=== PATIENT | male | born 1950 | race Caucasian/White ===

== ENCOUNTER → 2016-09-30 | Outpatient (CLI) | payer BC ==
[~2016-09-30] MED LIST: ACETAMINOPHEN PO; ACIDOPHILUS1 CA1 PO; ASPIRIN PO; ASPIRIN81 M1 PO; ASPIRIN81 M2 PO; BRILINTA90 MG PO; CELEXA PO; COMBIVENT U/D3 M2 INH; CRESTOR PO; DOXYCYCLINE PO; FISH OIL 1,0001 CAP PO; HYDROCODONE/APA1 T15 PO; JOINT; LEVAQUIN750 MG PO; LIPITOR; LISINOPRIL PO; LODINE400 M1 PO; LORTAB 10/500 T1 TAB PO; METOPROLOL SUCC25 MG PO; MULTI-DAY VITAM1 TAB PO; MULTI-VITAMIN1 TAB; MUSCLE; NITROGLYGERIN0.4 MG SL; NORVASC; NORVASC PO; NORVASC10 MG PO; PRAVACHOL80 MG PO; PRAVASTATIN SOD20 MG PO; PREDNISONE PO; PRINIVIL10 MG PO; SPIRIVA18 MCG INH; SYMBICORT80 INH; TOPROL XL PO; TUMS PO; TYLOX1 CAP 5/50 PO; VITAMIN D1000 UNIT PO; VITAMINE C; [UNRECOGNIZED DRUG - REMARK] PO
--- NOTE | ~2016-09-30 | CT57 ---
[facility] A Service of [facility] RADIOLOGY TEXT RESULTS PATIENT: ROSANA CLIFFORD LOCATION: [facility] : 48 UNIT #: [id number] AGE: [address]: Ambrosio Du SEX: M ORDER DR: [id number] [place], [place] [address] [id number] O MR#: [id number] [facility] #: [id number] NAME: ROSANA CLIFFORD. : 1950 SEX: M STUDY DATE/TIME: 09/30/2016 11:16 UNIT: [facility] ROOM: STUDY DESCRIPTION: CT Chest Wo Cont Attending Physician: Ambrosio Du M.D. Referring Physician: Ambrosio Du M.D. Ordering Physician: Ambrosio Du M.D. Primary Care Physician: Joseph Salazar Jr., M.D. MEDICAL IMAGING REPORT This report is preliminary unless electronic signature is present EXAM CT of the chest without contrast INDICATIONS 66-year-old male with shortness of breath for 4 years. Followup pulmonary nodule. TECHNIQUE CT chest performed without contrast. Coronal and sagittal reformatted images were obtained. This CT exam was performed with one or more of the following radiation dose reduction techniques: automatic control, adjustment of mA and/or kV according to patient size, and iterative reconstruction. COMPARISON 02/15/2016 FINDINGS Emphysema. Stable 5 - 6 mm nodule in the right upper lobe. This has been stable dating back to October of 2015. There is some mild tree-in-bud nodularity in the base of the right lower lobe. This is stable. No new nodules. No lymphadenopathy. Calcified mediastinal and hilar lymph nodes. Coronary artery calcification. Trace pericardial fluid. No pleural fluid. Limited imaging in the upper abdomen demonstrates stable large cyst adjacent to the right kidney. Bone windows demonstrate a healing left ninth rib fracture. Degenerative change thoracic spine. IMPRESSION 1. Stable emphysema. 2. Stable 5-6 mm nodule in the right upper lobe. 3. Stable minimal tree-in-bud nodularity in the base of the right lower lobe. [facility] A Service of [facility] RADIOLOGY TEXT RESULTS PATIENT: ROSANA CLIFFORD LOCATION: [facility] : 48 UNIT #: [id number] AGE: [address]: Ambrosio Du SEX: M ORDER DR: Dictated by... Scottie Jimenes M.D. THIS IS AN ELECTRONICALLY VERIFIED REPORT Scottie Jimenes M.D. at 10/01/2016 9:08 AM BI/marior TD: 09/30/2016 14:06 JOB #: [id number] MEDICAL IMAGING REPORT Page 1 of 1 COPY
== END | disposition home or self-care (01) ==
LOC: CCAT 10:50
DX: R91.1 Solitary pulmonary nodule (principal); J43.9 Emphysema, unspecified
CPT/HCPCS: 71250

== ENCOUNTER → 2017-03-24 | Outpatient (CLI) | payer BC ==
--- NOTE | ~2017-03-24 | CT57 ---
[facility] A Service of [facility] RADIOLOGY TEXT RESULTS PATIENT: ROSANA CLIFFORD LOCATION: [facility] : 49 UNIT #: [id number] AGE: [address]: Leonela Ornelas SEX: M ORDER DR: [id number] [facility] [address] [place], [place] [address] [id number] O MR#: [id number] Acc #: [id number] NAME: ROSANA CLIFFORD : 1950 SEX: M STUDY DATE/TIME: 03/24/2017 13:44 UNIT: [facility] ROOM: STUDY DESCRIPTION: CT Chest Wo Cont Attending Physician: Leonela Ornelas A.P.R.N. Referring Physician: Leonela Ornelas A.P.R.N. Ordering Physician: Leonela Ornelas A.P.R.N. Primary Care Physician: Joseph Salazar Jr., M.D. MEDICAL IMAGING REPORT This report is preliminary unless electronic signature is present EXAM CT chest without contrast. INDICATIONS Followup pulmonary nodule. TECHNIQUE CT of the chest was performed without contrast. Coronal and sagittal reformatted images were obtained. This CT exam was performed with one or more of the following radiation dose reduction techniques: automatic exposure control, adjustment of mA and/or kV according to patient size, and iterative reconstruction. COMPARISON Compared with 09/30/2016, and 02/15/2016. FINDINGS Emphysema. Stable 5-6 mm pulmonary nodule within the periphery of right upper lobe. Stable tree-in-bud nodularity in the base of the right lower lobe. Stable left upper lobe micronodule on image 34. No new nodules. No suspicious lymphadenopathy. Calcified mediastinal hilar lymph nodes. Small pericardial effusion. No pleural effusion. Coronary artery calcification. Limited imaging in the upper abdomen shows postoperative change from mesh repair of the anterior abdominal wall. Partially imaged cyst in the right kidney. Bone windows show an old healed rib fracture on the left. IMPRESSION 1. Stable 5-6 mm nodule in the periphery of right upper lobe. 2. Stable tree-in-bud nodularity in the base of the right lower lobe. Dictated by... STS. [facility] A Service of [facility] RADIOLOGY TEXT RESULTS PATIENT: ROSANA CLIFFORD LOCATION: [place] : 48 UNIT #: [id number] AGE: [address]: Leonela Ornelas SEX: M ORDER DR: Scottie Jimenes M.D. THIS IS AN ELECTRONICALLY VERIFIED REPORT Scottie Jimenes M.D. at 03/25/2017 8:00 AM BI/rimma TD: 03/24/2017 19:42 JOB #: [id number] MEDICAL IMAGING REPORT Page 1 of 1 COPY
== END | disposition home or self-care (01) ==
LOC: CCAT 13:09
DX: R91.1 Solitary pulmonary nodule (principal); R91.8 Other nonspecific abnormal finding of lung field
CPT/HCPCS: 71250